=== PATIENT | male | born 1960 | race Caucasian/White ===

== ENCOUNTER 2020-06-21 12:42 | Emergency (ER) | payer MEDICAID ==
[~2020-06-21] VITALS: Ht 198.1 cm; Wt 109.1 kg
[2020-06-21 12:58] VITALS: BP 105/68
== END 2020-06-21 14:20 | disposition home or self-care (01) ==
LOC: ER 12:43
DX: M79.641 Pain in right hand (principal); M79.642 Pain in left hand; G89.29 Other chronic pain; M54.5 Low back pain; Z88.0 Allergy status to penicillin; Z88.6 Allergy status to analgesic agent; W18.30XA Fall on same level, unspecified, initial encounter; Y93.89 Activity, other specified; Y92.89 Other specified places as the place of occurrence of the external cause; Y99.9 Unspecified external cause status
CPT/HCPCS: 99281